=== PATIENT | female | born 1995 | race Caucasian/White ===

== ENCOUNTER 2018-01-28 20:58 | Emergency (ER) | payer BC ==
[2018-01-28] MEDS ORDERED: IBUPROFEN 600 MG TABLET PO ONE (21:08)
--- NOTE | 2018-01-28 21:09 | Emergency Department Record ---
History of Present Illness - General Chief complaint: Extremity Problem Stated complaint: L THUMB INJURY Time Seen by Provider: 01/28/18 21:03 Source: Patient Mode of Arrival: Ambulatory Limitations: No limitations - History of Present Illness Initial comments: 22 yo female presents to ED for evaluation of a crush injury to the left thumb. Patient reports that her thumb was closed in a car door 23.5 hours ago, reports mild bleeding to the proximal nail fold. Patient also reports pain throughout the thumb. Patient denies other injury or health problems at her baseline. MD Complaint: Extremity pain Onset/Timin -: Hour(s) Location: Left, Hand History of Same: No -: Yes Arthralgia Quality: Aching Consistency: Constant Improves with: Nothing Worsens with: Palpation Associated Symptoms: Denies other symptoms - Related Data Allergies Allergy/AdvReac Type Severity Reaction Status Date / Time No Known Drug Allergies Allergy Unverified 10/04/17 15:12 Review of Systems Constitutional: Denies: Chills, Fever, Malaise, Night sweats Eyes: Denies: Eye discharge, Eye pain ENT: Denies: Congestion, Ear pain, Epistaxis Respiratory: Denies: Cough, Dyspnea Cardiovascular: Denies: Chest pain, Dyspnea on exertion Endocrine: Denies: Fatigue, Heat or cold intolerance Gastrointestinal: Denies: Abdominal pain, Nausea, Vomiting Genitourinary: Denies: Incontinence, Retention Musculoskeletal: Reports: Arthralgia. Denies: Back pain, Gout, Joint swelling Skin: Denies: Bruising, Change in color Neurological: Denies: Abnormal gait, Confusion, Headache, Seizure Psychiatric: Denies: Anxiety Hematological/Lymphatic: Denies: Anemia, Blood Clots Past Medical History - SOCIAL HISTORY Smoking Status: Never smoker - RESPIRATORY Hx Respiratory Disorders: No - CARDIOVASCULAR Hx Cardio Disorders: No - NEURO Hx Neuro Disorders: No - GI Hx GI Disorders: No - Hx Genitourinary Disorders: No - ENDOCRINE Hx Endocrine Disorders: No - MUSCULOSKELETAL Hx Musculoskeletal Disorders: No - PSYCH Hx Psych Problems: No - HEMATOLOGY/ONCOLOGY Hx Hematology/Oncology Disorders: No Physical Exam - General General Appearance: Alert, Oriented x3, Cooperative, Moderate distress Limitations: No limitations - Head Head exam: Atraumatic, Normocephalic, Normal inspection Head exam detail: negative: Abrasion, Contusion, Wright's sign, General tenderness, Hematoma, Laceration - Eye Eye exam: Normal appearance. negative: Conjunctival injection, Periorbital swelling, Periorbital tenderness, Scleral icterus - ENT Ear exam: negative: Auricular hematoma, Auricular trauma Nasal Exam: negative: Active bleeding, Discharge, Dried blood, Foreign body Mouth exam: negative: Drooling, Laceration, Tongue elevation - Neck Neck exam: Normal inspection. negative: Meningismus, Tenderness - Respiratory Respiratory exam: Normal lung sounds bilaterally. negative: Rales, Respiratory distress, Rhonchi, Stridor - Cardiovascular Cardiovascular Exam: Regular rate, Normal rhythm, Normal heart sounds - GI/Abdominal GI/Abdominal exam: Soft. negative: Rebound, Rigid, Tenderness - Rectal Rectal exam: Deferred - exam: Deferred - Extremities Extremities exam: Tenderness, Other (Moderate TTP to the distal thumb on examination, approximately 10% subungal hematoma distally, ROM intact but painful. Small laceration to the nail-fold, bleeding well controlled.). negative: Pedal edema - Back Back exam: Denies: CVA tenderness (R), CVA tenderness (L) - Neurological Neurological exam: Alert, Normal gait, Oriented X3 - Psychiatric Psychiatric exam: Normal affect, Normal mood - Skin Skin exam: Normal color. negative: Abrasion Type of lesion: negative: abrasion Course - Reevaluation(s) Reevaluation #1: 01/28/18 21:42 Left thumb: No acute fracture identified Patient was updated on her radiology results, will place in dressing with instructions for dressing changes and Ibuprofen/ice as needed for her pain symptoms. Patient appears stable for discharge at this time. Disposition Disposition: Discharge Clinical Impression: Crushing injury of left thumb, initial encounter Disposition: Home, Self-Care Condition: (2) Stable Instructions: Contusion in Adults (ED) Additional Instructions: Return to ED if your symptoms worsen or if you have any concerns. Dressingf changes daily. Ice, Ibuprofen as needed. Follow-up with your family doctor in 3-5 days as directed. Forms: Patient Portal Access Time of Disposition: 21:44 Quality - Quality Measures Quality Measures: N/A - Blood Pressure Screening Does Patient Have Any of the Following: No Blood Pressure Classification: Pre-Hypertensive BP Reading Systolic Measurement: 128 Diastolic Measurement: 74 Screening for High Blood Pressure: < Pre-Hypertensive BP, F/U Documented > [ [id number]] Pre-Hypertensive Follow-up Interventions: Referral to alternative/primary care provider.
--- NOTE | 2018-01-29 18:26 | RADIOLOGY REPORT ---
EXAM: FINGER(S), LEFT HISTORY: CAR DOOR SLAM, CRUSH INJURY LEFT THUMB WITH LACERATION FIRST DIGIT DISTAL PHALANX. TECHNIQUE: Three views left thumb. COMPARISON: None. ENCOUNTER: Initial FINDINGS: No definite fracture of the left thumb identified. There is a small bony density along the anterior aspect of the IP joint of the thumb, which is likely just a sesamoid bone. No dislocation of the thumb evident. There is probably some mild soft tissue swelling distally in the thumb. IMPRESSION: MILD SOFT TISSUE SWELLING. NO DEFINITE FRACTURE OF THE LEFT THUMB IDENTIFIED. JOB NUMBER: [id number] MTDD
== END 2018-01-28 21:57 | disposition home or self-care (01) ==
LOC: ER 20:58
DX: S67.02XA Crushing injury of left thumb, initial encounter (principal); W23.0XXA Caught, crushed, jammed, or pinched between moving objects, initial encounter
CPT/HCPCS: 73140; 99283